=== PATIENT | female | born 1955 | race Caucasian/White ===

== ENCOUNTER 2021-11-18 17:04 | Emergency (ER) | payer MEDICAID ==
[~2021-11-18] VITALS: Ht 160 cm; Wt 104.0 kg
[~2021-11-18 17:04] MED LIST: BENA20TA10 PO; METO25TA6 PO; NVLG73 SUBCUT
[2021-11-18] MEDS ORDERED: METHYLPREDNISOLONE SOD SUCC 125 MG/2 ML VIAL IV STA (18:16)
[2021-11-18] MEDS ORDERED: IPRATROPIUM BROMIDE (0.02%) 0.5MG/2.5ML NEB HHN STA (18:16)
[2021-11-18 18:52] LABS: BASOPHILS % 0.3 % (0.0-2.0); EOSINOPHILS % 0.4 % (0.0-5.0); HEMATOCRIT. 38.2 % (36.0-48.0); HEMOGLOBIN. 12.6 g/dL (12.0-16.0); LYMPHOCYTES % 18.8 % (20.0-50.0); MEAN CORPUSCULAR HEMOGLOBIN 28.6 pg (28.0-32.0); MEAN CORPUSCULAR VOLUME 87.1 fL (81.0-99.0); MONOCYTES % 8.6 % (2.0-8.0); NEUTROPHILS % 71.9 % (40.0-76.0); PLATELET 238 x1000/uL (130-400); RED BLOOD CELL COUNT 4.39 mill/uL (4.2-5.4); RED CELL DISTRIBUTION WIDTH 14.4 % (11.6-14.6)
[2021-11-18] MEDS: ALBUTEROL (0.083%) 2.5MG/3ML NEB HHN SCH (19:00)
[2021-11-18] MEDS ORDERED: ACETAMINOPHEN 325MG TABLET PO NR (19:00)
[2021-11-18 19:07] LABS: CHLORIDE 103 mEq/L (98-107)
[2021-11-18] MEDS ORDERED: ALBUTEROL 6.7GM HFA INHALER ORI NR (20:15)
[2021-11-18 20:19] LABS: CLARITY URINE TURBID (CLEAR); COLOR URINE YELLOW (YELLOW); KETONES URINE NEGATIVE (NEGATIVE); LEUKOCYTE ESTERASE URINE NEGATIVE (NEGATIVE); NITRITE URINE NEGATIVE (NEGATIVE); OCCULT BLOOD URINE NEGATIVE (NEGATIVE); PH URINE 6.5 (4.5-8.0); PROTEIN URINE NEGATIVE (NEGATIVE); SPECIFIC GRAVITY URINE 1.013 (1.005-1.030); UROBILINOGEN URINE 0.2 E.U./dL (0.2-1.0)
[2021-11-18] MEDS ORDERED: IOHEXOL-350 100 ML BOTTLE ONE (21:02)
[2021-11-18] MEDS ORDERED: P20 MT (22:12)
[2021-11-18] MEDS ORDERED: ALBU90AE INH (22:12)
[2021-11-18 22:47] VITALS: BP 144/76
== END 2021-11-18 22:49 | disposition home or self-care (01) ==
LOC: ER 17:04
DX: U07.1 COVID-19 (principal); J45.901 Unspecified asthma with (acute) exacerbation; E11.9 Type 2 diabetes mellitus without complications; E78.00 Pure hypercholesterolemia, unspecified; I10 Essential (primary) hypertension; Z86.73 Personal history of transient ischemic attack (TIA), and cerebral infarction without residual deficits; Z90.710 Acquired absence of both cervix and uterus
CPT/HCPCS: 36415; 71045; 71275; 80053; 81003; 83605; 83880; 84145; 84484; 85025; 85379; 87040; 87086; 87426; 93005; 94640; 96374; 99285; C9803; J2930; Q9967; Z7610

== ENCOUNTER 2023-06-03 19:18 | Emergency (ER) | payer OTHER, MEDICAID ==
[~2023-06-03] VITALS: Ht 160 cm; Wt 100.0 kg
[~2023-06-03 19:18] MED LIST changes: +ALBU90AE INH; +BENA-8 PO; -BENA20TA10 PO; +P20 MT
[2023-06-03 19:57] VITALS: BP 111/65; O2SAT 94
[2023-06-03 20:23] LABS: DIFFERENTIAL COMMENT 1; HEMATOCRIT. 41.9 % (36.0-48.0); HEMOGLOBIN. 13.9 g/dL (12.0-16.0); MEAN CORPUSCULAR HEMOGLOBIN 28.5 pg (28.0-32.0); MEAN CORPUSCULAR HGB CONC 33.3 g/dL (31.0-37.0); MEAN CORPUSCULAR VOLUME 85.8 fL (81.0-99.0); MEAN PLATELET VOLUME 6.8 fl (7.4-10.4); PLATELET 285 x1000/uL (130-400); RED BLOOD CELL COUNT 4.88 mill/uL (4.2-5.4); RED CELL DISTRIBUTION WIDTH 14.4 % (11.6-14.6); WHITE BLOOD COUNT 13.4 x1000/uL (4.5-11.0)
[2023-06-03 20:27] LABS: PROTHROMBIN TIME 10.5 sec (9.6-11.0)
[2023-06-03 20:38] LABS: ALANINE AMINOTRANSFERASE 50 IU/L (10-49); ALBUMIN 4.6 g/dL (3.2-4.8); ASPARTATE AMINOTRANSFERASE 45 IU/L (<34); BILIRUBIN TOTAL 0.6 mg/dL (0.1-1.0); CALCIUM 9.4 mg/dL (8.7-10.4); CARBON DIOXIDE 27 mEq/L (21-32); CHLORIDE 103 mEq/L (98-107); CREATININE 0.7 mg/dL (0.6-1.0); GLUCOSE 178 mg/dL (70-105); PROTEIN TOTAL 8.3 g/dL (6.0-8.3); SODIUM 138 mEq/L (136-145); UREA NITROGEN BLOOD 14 mg/dL (9-23)
[2023-06-03 20:40] LABS: PLATELET ESTIMATE NORMAL
[2023-06-04 03:10] LABS: CLARITY URINE CLEAR (CLEAR); COLOR URINE YELLOW (YELLOW); GLUCOSE URINE 3+ (NEGATIVE); KETONES URINE TRACE (NEGATIVE); LEUKOCYTE ESTERASE URINE NEGATIVE (NEGATIVE); NITRITE URINE NEGATIVE (NEGATIVE); OCCULT BLOOD URINE NEGATIVE (NEGATIVE); PROTEIN URINE NEGATIVE (NEGATIVE); SPECIFIC GRAVITY URINE 1.045 (1.005-1.030); UROBILINOGEN URINE 0.2 E.U./dL (0.2-1.0)
[2023-06-04] MEDS ORDERED: ACETAMINOPHEN 325MG TABLET PO ONE (03:15)
[2023-06-04] MEDS ORDERED: ONDANSETRON 4MG ODT PO ONE (03:15)
[2023-06-04] MEDS ORDERED: NAPR275T96 MT (04:10)
[2023-06-04] MEDS ORDERED: ONDA4TAB50 MT (04:10)
[2023-06-04 04:24] VITALS: PULSE 85; RESP 20; TEMP 98.1
[2023-06-04 05:58] LABS: BACTERIA URINE NONE SEEN; RBC URINE 0-2 /hpf (0-2); SQUAMOUS EPITHELIAL CELL URINE FEW /lpf (RARE/1+); WBC URINE 0-2 /hpf (0-2)
== END 2023-06-04 04:25 | disposition home or self-care (01) ==
LOC: ER 19:18
DX: R10.9 Unspecified abdominal pain (principal); J45.909 Unspecified asthma, uncomplicated; E11.9 Type 2 diabetes mellitus without complications; E78.00 Pure hypercholesterolemia, unspecified; I10 Essential (primary) hypertension; Z87.01 Personal history of pneumonia (recurrent); Z86.73 Personal history of transient ischemic attack (TIA), and cerebral infarction without residual deficits; Z79.899 Other long term (current) drug therapy
CPT/HCPCS: 99284; 80053; 81025; 83605; 83690; 85025; 85610; 87040; 36415; 93005; 74176; 81003; 87086; Q0162

== ENCOUNTER → 2024-09-18 | Day surgery (SDC) | payer OTHER ==
[~2024-09-18] VITALS: Ht 157.5 cm; Wt 95.7 kg
[~2024-09-18] MED LIST changes: -BENA-8 PO; +BENA40TA91 PO; +EMPA25TA PO; +FLUT1BLS3 IH; +GABA-1180 PO; +MONT-39 PO; +NAPR275T96 MT; +ONDA4TAB50 MT; +PROPOFOL 200MG/20ML VIAL IV ONE; +SEMA2PEN SQ; +SIMV-43 PO; +SODIUM CHLORIDE 0.9% 1,000 ML IV SCH
[2024-09-18 08:12] LABS: BASOPHILS % 0.9 % (0.0-2.0); EOSINOPHILS % 1.5 % (0.0-5.0); HEMATOCRIT. 39.8 % (36.0-48.0); HEMOGLOBIN. 12.7 g/dL (12.0-16.0); LYMPHOCYTES % 22.4 % (20.0-50.0); MEAN CORPUSCULAR HEMOGLOBIN 27.6 pg (28.0-32.0); MEAN CORPUSCULAR VOLUME 86.3 fL (81.0-99.0); MEAN PLATELET VOLUME 6.9 fl (7.4-10.4); MONOCYTES % 5.6 % (2.0-8.0); NEUTROPHILS % 69.6 % (40.0-76.0); PLATELET 236 x1000/uL (130-400); RED BLOOD CELL COUNT 4.61 mill/uL (4.2-5.4); RED CELL DISTRIBUTION WIDTH 15.1 % (11.6-14.6); WHITE BLOOD COUNT 7.6 x1000/uL (4.5-11.0)
[2024-09-18 08:30] LABS: CHLORIDE 102 mEq/L (98-107); POTASSIUM 4.1 mEq/L (3.5-5.1); SODIUM 143 mEq/L (136-145)
[2024-09-18 08:31] LABS: CARBON DIOXIDE 32 mEq/L (21-32)
[2024-09-18 08:32] LABS: CALCIUM 9.4 mg/dL (8.7-10.4)
[2024-09-18 08:36] LABS: CREATININE 0.6 mg/dL (0.6-1.0)
[2024-09-18 08:37] LABS: GLUCOSE 99 mg/dL (70-105); UREA NITROGEN BLOOD 7 mg/dL (9-23)
== END | disposition home or self-care (01) ==
LOC: OR 07:26
PROVIDERS: ATTEND Internal Medicine Gastroenterology
DX: Z12.11 Encounter for screening for malignant neoplasm of colon (principal); K57.30 Diverticulosis of large intestine without perforation or abscess without bleeding; D12.3 Benign neoplasm of transverse colon; E66.01 Morbid (severe) obesity due to excess calories; J45.909 Unspecified asthma, uncomplicated; E11.9 Type 2 diabetes mellitus without complications; I10 Essential (primary) hypertension; E78.5 Hyperlipidemia, unspecified; M06.9 Rheumatoid arthritis, unspecified; Z79.84 Long term (current) use of oral hypoglycemic drugs; Z79.899 Other long term (current) drug therapy; Z98.890 Other specified postprocedural states; Z80.0 Family history of malignant neoplasm of digestive organs; Z86.0100 Personal history of colon polyps, unspecified; Z86.73 Personal history of transient ischemic attack (TIA), and cerebral infarction without residual deficits
CPT/HCPCS: 45380; 80048; 85025; 36415; 88305; 93005; J2704